=== PATIENT | male | born 1985 | race Caucasian/White ===

== ENCOUNTER 2019-10-25 17:16 | Emergency (ER) | payer BC ==
[2019-10-25] MEDS ORDERED: traMADol 50 MG Tab ONE (17:20)
--- NOTE | 2019-10-31 16:07 | EDM.PDOC ---
ED HPI GENERAL MEDICAL PROBLEM - General Chief Complaint: Abdominal Pain Stated Complaint: POSSIBLE HERNIA Time Seen by Provider: 10/25/19 17:16 Source of Information: Reports: Patient History Limitations: Reports: No Limitations - History of Present Illness INITIAL COMMENTS - FREE TEXT/NARRATIVE: This is a 34yo M here for pain of the testicle. He notes it is just above the testicle with some swelling and redness. He denies any STD's or recent exposures. He is monogamous with his . He denies any recent injury or other concerns. Onset: Gradual Duration: Day(s): Location: Reports: Other Quality: Reports: Ache Severity: Moderate Improves with: Reports: None Worsens with: Reports: Movement Right Groin Pain Score (Numeric/FACES): 3 - Related Data Allergies Allergy/AdvReac Type Severity Reaction Status Date / Time No Known Allergies Allergy Verified 10/25/19 17:39 ED ROS GENERAL - Review of Systems Review Of Systems: Comprehensive ROS is negative, except as noted in HPI. ED EXAM, RENAL/ - Physical Exam Exam: See Below Exam Limited By: No Limitations General Appearance: Alert, WD/WN, No Apparent Distress Eye Exam: Bilateral Eye: EOMI Ears: Normal External Exam Nose: Normal Inspection Throat/Mouth: Normal Inspection Head: Atraumatic, Normocephalic Neck: Normal Inspection Respiratory/Chest: No Respiratory Distress Cardiovascular: Normal Peripheral Pulses GI/Abdominal: Normal Bowel Sounds (Male) Exam: No Hernia, Normal Inspection, Circumcised, Other (right epididymis tenderness and swelling). No: Urethral Discharge Course - Vital Signs Last Recorded V/S: Last Vital Signs Temp 36.8 C 10/25/19 17:33 Pulse 76 10/25/19 17:33 Resp 18 10/25/19 17:33 BP 120/73 10/25/19 17:33 Pulse Ox 97 10/25/19 17:33 - Orders/Labs/Meds Meds: Medications Discontinued Medications Generic Name Dose Route Start Last Admin Trade Name Freq PRN Reason Stop Dose Admin Tramadol HCl 500 mg 10/25/19 17:20 Ultram .ROUTE 10/25/19 17:21 .STK-MED ONE Departure - Departure Time of Disposition: 17:25 Disposition: Home, Self-Care 01 Condition: Good Clinical Impression: Epididymitis with no abscess - Discharge Information Instructions: Epididymitis Referrals: PCP,None [Primary Care Provider] - Forms: ED Department Discharge, ED Return to Work/School Form Additional Instructions: Discharge home. Cipro 500 mg tablets 2 times a day or 10 days. Follow up as needed. Sepsis Event Note - Evaluation Sepsis Screening Result: No Definite Risk - Problem List & Annotations (1) Epididymitis with no abscess SNOMED Code(s): 05392278 Code(s): N45.1 - EPIDIDYMITIS Status: Acute Priority: High - Problem List Review Problem List Initiated/Reviewed/Updated: Yes - Assessment/Plan Plan: Counseled on antibiotics and management wit side effects. Discussed rtc or ER if symptoms worsen or persist. Discussed close f/u and rtc as directed with PCP. Patient agrees on f/u if any further concerns or no resolution of symptoms. He agrees with emergent f/u in ER if symptoms worsen.
== END 2019-10-25 17:30 | disposition home or self-care (01) ==
LOC: LB.ED 17:16
DX: N45.1 Epididymitis (principal)
CPT/HCPCS: 99283; A9270-GY